=== PATIENT | female | born 1995 | race Caucasian/White ===

== ENCOUNTER 2017-02-06 21:55 | Emergency (ER) | payer OTHER ==
[~2017-02-06] VITALS: Ht 165.1 cm; Wt 85.3 kg
[2017-02-06 23:18] LABS: BASOPHIL % 0.1 % (0-2); PLATELET COUNT 378 x10^3mcL (130-400); RED CELL DISTRIBUTION WIDTH 13.9 % (11.5-14.5)
[2017-02-06 23:27] LABS: CALCIUM 8.4 mg/dL (8.5-10.1); CARBON DIOXIDE 23.2 mmol/L (21-32); CHLORIDE SERUM 106 mmol/L (98-107); CREATININE SERUM 0.5 mg/dL (0.6-1.0); GFR1 > 60 mL/min; GLUCOSE SERUM 79 mg/dL (74-106); POTASSIUM SERUM 3.4 mmol/L (3.5-5.1); SODIUM SERUM 141 mmol/L (136-145)
[2017-02-06 23:31] LABS: ALKALINE PHOSPHATASE 103 U/L (46-116); ALT/SGPT 271 U/L (14-59); AST/SGOT 129 U/L (15-37); BILIRUBIN TOTAL 0.5 mg/dL (0.20-1.00); LIPASE 112 IU/L (73-393); TOTAL PROTEIN, SERUM 6.3 g/dL (6.4-8.2)
[2017-02-06 23:32] LABS: ALBUMIN 3.3 g/dL (3.4-5.0)
[2017-02-07 01:18] VITALS: BP 116/68
== END 2017-02-07 01:18 | disposition home or self-care (01) ==
LOC: ED 21:55
PROVIDERS: Emergency Medicine
DX: K52.9 Noninfective gastroenteritis and colitis, unspecified (principal); J45.909 Unspecified asthma, uncomplicated; Z79.899 Other long term (current) drug therapy
CPT/HCPCS: 36415

== ENCOUNTER 2017-02-09 20:48 | Emergency (ER) | payer OTHER ==
[2017-02-10] MEDS ORDERED: CIPRO500 MG PO (05:06)
[2017-02-10] MEDS ORDERED: FLA500 PO (05:07)
== END 2017-02-09 21:41 | disposition left against medical advice (07) ==
LOC: ED 20:48
DX: Z53.21 Procedure and treatment not carried out due to patient leaving prior to being seen by health care provider (principal)

== ENCOUNTER 2017-02-10 02:54 | Inpatient (IN) | payer OTHER ==
[~2017-02-10] VITALS: Ht 165.1 cm; Wt 71.2 kg
[2017-02-10 03:58] LABS: BASOPHIL % 0.2 % (0-2); PLATELET COUNT 381 x10^3mcL (130-400)
[2017-02-10 04:03] LABS: CALCIUM 8.8 mg/dL (8.5-10.1); CARBON DIOXIDE 27.5 mmol/L (21-32); CREATININE SERUM 1.4 mg/dL (0.6-1.0); POTASSIUM SERUM 3.5 mmol/L (3.5-5.1)
[2017-02-10 04:07] LABS: ALBUMIN 3.5 g/dL (3.4-5.0); BILIRUBIN TOTAL 0.3 mg/dL (0.20-1.00); TOTAL PROTEIN, SERUM 6.5 g/dL (6.4-8.2)
[2017-02-10] MEDS ORDERED: CIPRO500 MG PO (05:06)
[2017-02-10] MEDS ORDERED: FLA500 PO (05:07)
[2017-02-10 06:18] VITALS: BP 132/85
[2017-02-10 06:57] LABS: MAGNESIUM 1.9 mg/dL (1.8-2.4); PHOSPHOROUS 4.4 mg/dL (2.5-4.9)
[2017-02-10 07:09] LABS: FREE T4 1.19 ng/dL (0.76-1.46); FREE THYROXINE INDEX 3.5 ug/dL (1.4-4.5); T4(THYROXINE) 10.1 ug/dL (4.7-13.3)
[2017-02-10 07:34] LABS: T3 TOTAL 1.22 ng/mL
[2017-02-10 09:32] VITALS: BP 134/93
[2017-02-10 12:59] VITALS: BP 125/88
[2017-02-10 14:41] LABS: CHOLESTEROL/HDL RATIO 2.4
[2017-02-10 15:35] LABS: microscopic required? NO
[2017-02-10 15:41] LABS: UA SPECIFIC GRAVITY <=1.005 (1.005-1.035); urine erythrocyte NEGATIVE (NEGATIVE)
[2017-02-10 15:53] LABS: AMPHETAMINE QUAL UR NONE DETECTED (NEG <=1000)
[2017-02-10 17:06] VITALS: BP 118/82
[2017-02-10 21:09] VITALS: BP 107/67
[2017-02-11 05:44] VITALS: BP 123/71
[2017-02-11 06:35] LABS: CALCIUM 8.1 mg/dL (8.5-10.1); CARBON DIOXIDE 20.9 mmol/L (21-32); CHLORIDE SERUM 111 mmol/L (98-107); CREATININE SERUM 0.8 mg/dL (0.6-1.0); GFR1 > 60 mL/min; GLUCOSE SERUM 85 mg/dL (74-106); SODIUM SERUM 144 mmol/L (136-145)
[2017-02-11 06:49] LABS: BASOPHIL % 0.5 % (0-2); PLATELET COUNT 335 x10^3mcL (130-400); RED CELL DISTRIBUTION WIDTH 14.5 % (11.5-14.5)
[2017-02-11] MEDS ORDERED: LAC PO (09:15)
[2017-02-11 09:41] VITALS: BP 120/74
[2017-02-11] MEDS ORDERED: FLA250 PO (09:52)
[2017-02-11 12:56] VITALS: BP 120/74
[2017-02-11 13:55] VITALS: BP 130/82
== END 2017-02-11 15:15 | disposition home or self-care (01) | DRG 248 ==
LOC: ED 02:54 → DU 05:19
PROVIDERS: Emergency Medicine; ADMIT Family Medicine
DX: A04.7 Enterocolitis due to Clostridium difficile (principal); N17.0 Acute kidney failure with tubular necrosis; E44.1 Mild protein-calorie malnutrition; E86.0 Dehydration; J45.909 Unspecified asthma, uncomplicated; G43.909 Migraine, unspecified, not intractable, without status migrainosus; R74.0 Nonspecific elevation of levels of transaminase and lactic acid dehydrogenase [LDH]; Z68.26 Body mass index [BMI] 26.0-26.9, adult; Z91.14 Patient's other noncompliance with medication regimen; Z80.41 Family history of malignant neoplasm of ovary; Z91.048 Other nonmedicinal substance allergy status
CPT/HCPCS: 83880; 84439; J0744; J2405; J2550; J3490; J7030; Q0162

== ENCOUNTER 2019-10-18 20:28 | Emergency (ER) | payer OTHER ==
[~2019-10-18] VITALS: Ht 165.1 cm; Wt 83.5 kg
[~2019-10-18 20:28] MED LIST: CIPRO500 MG PO; FLA250 PO; FLA500 PO; LAC PO
[2019-10-18 20:34] VITALS: Ht 165.1 cm; Wt 83.5 kg
[2019-10-18 21:28] LABS: UA SPECIFIC GRAVITY 1.025 (1.005-1.035); microscopic required? YES; urine erythrocyte 3+ (NEGATIVE)
[2019-10-18 21:32] LABS: BASOPHIL % 0.1 % (0-2); PLATELET COUNT 376 x10^3mcL (130-400); RED CELL DISTRIBUTION WIDTH 13.2 % (11.5-14.5)
[2019-10-18 21:33] LABS: CALCIUM 9.2 mg/dL (8.5-10.1); CARBON DIOXIDE 30.7 mmol/L (21-32); CHLORIDE SERUM 101 mmol/L (98-107); CREATININE SERUM 0.8 mg/dL (0.6-1.0); GFR1 > 60 mL/min; GLUCOSE SERUM 97 mg/dL (74-106); POTASSIUM SERUM 3.4 mmol/L (3.5-5.1); SODIUM SERUM 140 mmol/L (136-145)
[2019-10-18 21:39] LABS: ALBUMIN 3.9 g/dL (3.4-5.0); ALKALINE PHOSPHATASE 97 U/L (46-116); ALT/SGPT 22 U/L (14-59); AST/SGOT 13 U/L (15-37); BILIRUBIN TOTAL 0.6 mg/dL (0.20-1.00); TOTAL PROTEIN, SERUM 7.8 g/dL (6.4-8.2)
[2019-10-18 23:14] VITALS: BP 112/59
== END 2019-10-18 23:17 | disposition home or self-care (01) ==
LOC: ED 20:28
PROVIDERS: Emergency Medicine
DX: N39.0 Urinary tract infection, site not specified (principal); J45.909 Unspecified asthma, uncomplicated; E66.9 Obesity, unspecified; Z68.30 Body mass index [BMI] 30.0-30.9, adult; G43.909 Migraine, unspecified, not intractable, without status migrainosus; G89.29 Other chronic pain; M25.561 Pain in right knee
CPT/HCPCS: J0696; J7030; J7060; Q0092

== ENCOUNTER 2020-07-03 14:12 | Emergency (ER) | payer OTHER ==
[~2020-07-03] VITALS: Ht 165.1 cm; Wt 86.2 kg
[2020-07-03 14:15] VITALS: Ht 165.1 cm; Wt 86.2 kg
[2020-07-03 16:20] VITALS: BP 124/94
== END 2020-07-03 16:20 | disposition home or self-care (01) ==
LOC: ED 14:12
DX: R07.89 Other chest pain (principal); J45.909 Unspecified asthma, uncomplicated; G43.909 Migraine, unspecified, not intractable, without status migrainosus; G89.29 Other chronic pain; Z88.5 Allergy status to narcotic agent; Z88.8 Allergy status to other drugs, medicaments and biological substances
CPT/HCPCS: G0480